=== PATIENT | male | born 1960 | race Caucasian/White ===

== ENCOUNTER 2024-09-19 08:57 | Outpatient (AMB) | payer MEDICARE, SELFPAY ==
--- NOTE | 2024-09-19 09:07 | A.SPINEOV_ITS ---
Intake Visit Reasons: severe foraminal stenosis Intake Note: Mr. Gonzales is here today c/o low back pain. MRI done @ [facility] (brought disc). [employer] Required: No Assessment & Plan Assessment & Plan (1) Cervical radiculopathy: Code(s): M54.12 - Radiculopathy, cervical region Category: Medical Plan Dear Randy, Thank you for referring Mr Gonzales to our office today. He is a very nice 64-year-old gentleman who presents to the office today for evaluation of a right upper extremity pain consistent with cervical radiculopathy that started about a month ago. He has no particular inciting event that started it, just came on after he felt something weird in his neck. That day he was okay but over the next day it started to radiate down into his subscapular area into his arm going into his hand and 4th and 5th digits. The pain was quite intense. As I understand it he called your office a number of times looking for pain medication it was trialed on gabapentin and ultimately some oxycodone. It does not seem to be helping much at all. He is very frustrated because he can not sleep and he is in about an 8/10 pain all day. He has not done any conservative treatment yet other than just taking the medications. He has also trialed Motrin and Tylenol. He underwent an MRI at [facility] showing degenerative disc disease with foraminal stenosis. PMH: He has a history of COPD, seems to be mild, he has an albuterol prescription that he really does not use. History of hypertension, diabetes. His last A1c was 9 but it was down from 14 where it was about 4 months ago. As he tells me, his diabetes diagnosis is fairly recent and has been more stable over the last month. He was started on Lantus by a specialist in addition to metformin and Jardiance. He has a recorder device on his arm and was able to show me his blood sugars over the last few months. He runs a little high in the evenings, but during the day seems to be in the mid to low 100s. Had a history of lung cancer in 2022 that was cured with surgical resection, he did not need chemotherapy or any radiation. He is followed by Dr. Castro with serial CT scans. Other than that he has had some gout but is generally been healthy. He did have a chemical stress test a few years ago to check on his heart and that was negative for ischemia and he had normal EF. Social hx: He quit smoking 2 years ago with his cancer diagnosis. Occasionally drinks, does not smoke marijuana use any recreational drugs Medications: Metformin, Jardiance, Lantus, allopurinol, lisinopril, atorvastatin, Tylenol, oxycodone, gabapentin Allergies: None Physical exam: Awake alert oriented no acute distress, strength is full, he has pain with movement of his head going down his right arm consistent with Spurling sign. He has absent reflexes at the right biceps and right triceps. No Ochoa's sign. Imaging review: Cervical MRI done at [facility] as well as cervical x-ray were reviewed. This shows degenerative disc disease at C5-6 and C6-7. His x-ray appears to show auto fusion of the anterior C5-6 level with bridging osteophytes. He has foraminal stenosis moderate at this level. At C6-7 he has severe disc collapse with some retrolisthesis of C6 on 7 with bilateral foraminal stenosis. There is some very mild foraminal stenosis at C7-T1 as well. No spinal cord compression Impression: 64-year-old male diabetic, presents for evaluation of right upper extremity radiculopathy going down into his hand and 4th and 5th digits. The pain started about a month ago when he was moving his head and felt an awkward sensation. Patient has not done any conservative treatment yet other than just trying to wait this out using medications as outlined above. I think the pain is coming from C6-7 I suspect. The dermatomal distribution on his hand is somewhat atypical but as we know patient can have some overlap. Typically this is something Dr. Gorman would treat with anterior cervical fusion, but the patient has only had pain for 1 month and his insurance company is not going to approve surgery until he is at least trialed some physical therapy. I explained this to him. He was somewhat frustrated with the but understands that is part of the medical system that we work in. He is going to continue on the gabapentin and the other [id number] medications. I told him to call me in a few weeks and if the therapy is just making things worse, we can submit for surgery. In the interim however I will review the imaging with Dr. Gorman. His A1c is a little bit elevated over the last 2 times he has had it checked, but it has come down significantly from 14 to 9 over the last few months. He has had Lantus added to his regimen recently as well by an middle school technology teacher. The computer tracker on his phone shows that his blood sugars have been a little elevated but not severely so over the last month. I hope this will keep him from surgery but if you believe it is elevating his risk please let us know. He is slightly higher for risk of infection with his A1c elevated. Thank you for allowing us to care for your patient. The total time spent with this visit with this patient was 45 minutes reviewing history, physical exam, cervical imaging review, and implementation of treatment plan or further diagnostic testing Nahid Gorman MD,PhD [facility] Orders: Orders PT Evaluation and Treatment Today M54.12 - Radiculopathy, cervical region Coding Level of Care Code New Pt Level 4 (55354) Diagnoses Cervical radiculopathy M54.12
--- OUTSIDE RECORDS SUMMARY | 2024-09-19 09:26 | XMS_ITS | Clinical Summary ---
Author Organization [address] [facility] Address [address] [facility] [place] [address] Phone Care Team Providers Care Bankruptcy Assistant Name Role Phone Cash Walters Primary Care Provider [phone] Allergies No known active allergies Medications atorvastatin (LIPITOR) 80 mg tablet Take 1 tablet (80 mg total) by mouth 1 (one) time each day. 4 Active FreeStyle Arabella 3 Sensor device USE TO CHECK BLOOD SUGAR, IN VITRO, DAILY DX: E11.9 90 DAYS 5 Active FreeStyle Arabella 3 [place] misc USE TO CHECK BLOOD SUGAR, IN VITRO, DAILY DX: E11.9 30 DAYS 5 Active blood sugar diagnostic (FreeStyle Lite Strips) test strip USE TO CHECK BLOOD SUGAR, IN VITRO, DAILY DX: E11.9 90 DAYS 5 Active FreeStyle Lancets 28 gauge lancets USE TO CHECK BLOOD SUGAR DAILY 5 Active empagliflozin (JARDIANCE) 25 mg tablet 5 Active metFORMIN (GLUCOPHAGE) 1,000 mg tablet Take 1 tablet (1,000 mg total) by mouth 2 (two) times a day with meals. 5 Active insulin glargine (Lantus Solostar U-100 Insulin) 100 unit/mL (3 mL) injection pen Use 6 units at bedtime, increase by 1 unit every 3 days with max of 10 units at bedtime, if fasting sugars is above 130 15 mL 2 5 Active pen needle, diabetic (BD Ultra-Fine France Pen Needle) 32 gauge x 5/32 needle Use daily with insulin 100 each 2 5 Active allopurinoL (ZYLOPRIM) 300 mg tablet Take 1 tablet (300 mg total) by mouth 1 (one) time each day. 5 Active lisinopriL (PRINIVIL,ZESTR IL) 30 mg tablet Take 1 tablet (30 mg total) by mouth 1 (one) time each day. for 90 days 5 Active albuterol HFA (PROAIR HFA ; PROVENTIL HFA ; VENTOLIN HFA) 90 mcg/actuation inhaler Inhale 2 puffs by mouth every 6 (six) hours if needed for wheezing or shortness of breath. 3 each 3 5 09/10/19 26 Active lisinopril (PRINIVIL,ZESTR IL) 40 mg tablet Take 30 mg by mouth 1 (one) time each day. 09/10/19 25 Discontinu ed(Therapy completed) metoprolol tartrate (LOPRESSOR) 25 mg tablet Take 1 tablet (25 mg total) by mouth 1 (one) time each day. 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 Gonzales is a 63 yr. male who is S/P right lower lobe wedge resection with completion lobectomy on September 01, 2022. 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 He was seen by Dr. Conner of medical oncology who did not recommend adjuvent chemotherapy. While he was in office today we did review his most recent chest CT surveillance scan which was performed on 03/28/2024 at [facility] and shows no new or worsening pulmonary nodules or mediastinal lymphadenopathy to suggest recurrence of disease. His next chest CT scan will be due in 6 months time which will be September 2024 and have a visit at the thoracic surgery department thereafter to discuss results. Pulmonary nodules 08/14/2022 Overview (01/29/2024): Last Assessment & Plan: 62-year-old male smoker who quit 17 days ago who presents after biopsy of right lower lobe nodule showing some atypical cells as well as a smaller nodule of mixed density in the right upper lobe. I do think that at least the lower lobe nodule is most likely a clinical stage I lung cancer and I explained this to him in detail. I discussed the results of his CAT scan and biopsy as described in the HPI. We also discussed the diagnosis, staging, and treatment of lung cancer which he and his seemed understand. His pulmonary function testing is excellent. I did discuss pulmonary nodules in general also with there are various possible etiologies including benign and malignant. Finally, we discussed options of continued observation versus second biopsy versus wedge resection possible lobectomy. After consideration of these options and their risks and benefits he wants to proceed with surgery. Given that there is a second nodule of mixed density in the right upper lobe with a surgical plan will be for navigational bronchoscopy with dye marking of right upper lobe nodule and da To right lower lobe wedge possible lobectomy in addition to right upper lobe wedge possible segmentectomy. We will have him see his primary care for a risk assessment and sure that the PET scan that has already been ordered happens within the next week or so. All questions were answered. Encounters Date Type Department Care Team Description 09/09/2024 8:30 AM EDT Office Visit Pulmonolgy - [place] [address] [facility] [address] [place] [phone] Angelica Nixon MD Chronic obstructive pulmonary disease, unspecified COPD type (CMS/HCC V24, CMS/HCC V28) (Primary Dx); Malignant neoplasm of lung, unspecified laterality, unspecified part of lung (CMS/HCC V24, CMS/HCC V28); Ex-smoker 09/02/2024 6:38 PM EDT - 09/02/2024 11:59 PM EDT Hospital Encounter [facility] MRI [address] [place] [id number] Radiculopathy, cervical region Discharge Disposition: Home or Self Care 09/01/2024 10:20 AM EDT Office Visit Endocrinology - [address] [phone] Jael Lopez PA Diabetes mellitus type 2 with complications ([facility] V24, [facility] V28) (Primary Dx); High triglycerides 08/26/2024 10:03 AM EDT - 08/26/2024 11:59 PM EDT Hospital Encounter [facility] Xray [address] [place] [phone] Radiculopathy, cervical region Discharge Disposition: Home or Self Care 08/23/2024 6:52 AM EDT - 08/23/2024 8:07 AM EDT Emergency [facility] Emergency [address] [place] [phone] Discharge Disposition: Left Against Medical Advice 07/11/2024 2:20 PM EDT Consult Endocrinology - [address] [phone] Jael Lopez PA Diabetes mellitus type 2 with complications ([facility] V24, [facility] V28) (Primary Dx); High triglycerides from Last 3 Months Surgical History Surgery Date Site/Laterality Comments OTHER SURGICAL HISTORY Left PROCEDURE: NH CORE NEEDLE BX LUNG/MEDIASTINUM PERQ W/IMG Medical History Medical History Date Comments COPD (chronic obstructive pu lmonary disease) ([facility] V24, [facility] V28) DX:COPD (chronic o bstructive pulmonary disease) ([facility]) Dyslipidemia DX:Dyslipidemia Gout DX:Gout Type 2 diabetes mellitus wit hout complications ([facility] V24, [facility] V28) DX:Type 2 lucia betes mellitus without complications ([facility]) HTN (hypertension) DX:HTN (hyper tension) Nicotine addiction DX:Nicotine a ddiction Social History Tobacco Use Types Packs/Day Years Used Date Smoking Tobacco: Former Cigarettes Q uit: 07/28/2022 Smokeless Tobacco: Never Tobacco Cessation:Counseling Given: Not Answered Alcohol Use Standard Drinks/Week Comments Yes 7 (1 standard drink = 0.6 oz pur e alcohol) Sex and Gender Information Value Date Recorded Sex Assigned at Male 06/10/2024 2:06 PM EST Legal Sex Male 7:25 AM EST Gender Identity Male 06/10/2024 2:06 PM EST Sexual Orientation Straight 06/10/2024 2: 06 PM EST Obstetrics History Last Filed Vital Signs Vital Sign Reading Time Taken Comments Blood Pressure 145/66 09/09/2024 8:55 AM EDT Pulse 97 09/09/2024 8:55 AM EDT Temperature 35.6 ??C (96 ??F) 09/09/2024 8:55 AM EDT Respiratory Rate 16 09/09/2024 8:55 AM EDT Oxygen Saturation 97% 09/09/2024 8:55 AM EDT Inhaled Oxygen Concentration - - Weight 88.9 kg (195 lb 14.4 oz) 09/09/2024 8:55 AM EDT Height 175.3 cm (5' 9 ) 09/09/2024 8:55 AM EDT Body Mass Index 28.93 09/09/2024 8:55 AM EDT Plan of Treatment Upcoming Encounters Date Type Department Care Team (Late st Contact Info) Description 10/17/2024 2:00 PM EDT Appointment [facility] CT Scan [address] [place] [phone] 10/26/2024 10:00 AM EDT Office Visit Thoracic Surgery - [place] [address] [phone] Irving Chery PA [address] [address] 12/02/2024 10:45 AM EDT Office Visit Endocrinology - [address] [phone] Katie Ruby PA [address] [place] [address] 09/12/2025 10:00 AM EDT Office Visit Pulmonolgy - [place] [address] [phone] Angelica Nixon MD [address] [address] Health Maintenance Due Date Last Done Comments Diabetes: Annual Foot Exam 1969 Diabetes: Annual Retina Eye Exam 1969 DTaP,Tdap,and Td Vaccines (1 - Tdap) 1978 Pneumococcal Vaccine: 50+ Years (1 of 2 - PCV) 1978 Pneumococcal Vaccine: Pediatrics (0 to 5 Years) and At-Risk Patients (6 to 64 Years) (1 of 2 - PCV) 1978 Zoster Vaccines (1 of 2) 1978 RSV Immunization Adult Patients (1 - Risk 60-74 years 1-dose series) 2019 Abdominal Aortic Aneurysm (AAA) Screen 03/23/2022 Colorectal Cancer Screening: Colonoscopy 03/23/2022 Depression Screening 03/23/2022 Hepatitis C Screening 03/23/2022 Medicare Annual Wellness Visit 03/23/2022 Social Influencers of Health Screening 03/23/2022 COVID-19 Vaccine ( season) 2023 04/08/2021, 08/25/2020, 08/04/2020 Falls Risk Assessment 01/04/2024 Diabetes: Annual Urine Albumin-Creatinine Ratio (uACR) 03/02/2024 Influenza Vaccine (Season Ended) 2024 Diabetes: Blood Sugar Control Test (HGBA1C) 02/01/2025 08/02/2024, 06/09/2024, 03/02/2024 Diabetes: Annual GFR (Glomerular Filtration Rate) 06/10/2025 06/10/2024, 06/09/2024 Cholesterol Screening (Lipid Panel) 08/02/2029 08/02/2024, 08/02/2024, 06/09/2024, Additional history exists HIB Vaccines Aged Out No longer eligi ble based on patient's age to complete this topic HPV Vaccines Aged Out No longer eligi ble based on patient's age to complete this topic Hepatitis A Vaccines Aged Out No long er eligible based on patient's age to complete this topic Hepatitis B Vaccines Aged Out No long er eligible based on patient's age to complete this topic IPV Vaccines Aged Out No longer eligi ble based on patient's age to complete this topic MMR Vaccines Aged Out No longer eligi ble based on patient's age to complete this topic Meningococcal ACWY Vaccine Aged Out N o longer eligible based on patient's age to complete this topic Meningococcal B Vaccine Aged Out No l onger eligible based on patient's age to complete this topic RSV Immunization Patients Under 20 months Aged Out No longer eligible based on patient's age to complete this topic Varicella Vaccines Aged Out No longer eligible based on patient's age to complete this topic Procedures Procedure Name Priority Date/Time Associated Diagnosis Comments MR CERVICAL SPINE WO CONTRAST Routine 09/02/2024 7:33 PM EDT Radiculopathy, cervical region XR CERVICAL SPINE 4-5 VIEWS Routine 08/26/2024 10:24 AM EDT Radiculopathy, cervical region XR SHOULDER 2+ VIEWS RIGHT STAT 08/23/2024 7:13 AM EDT LDL CHOLESTEROL, DIRECT Routine 08/02/2024 10:05 AM EDT Laboratory tests ordered as part of a complete physical exam (CPE) HLD (hyperlipidemia) DM (diabetes mellitus) (CMS/[facility] V24, CMS/[facility] V28) Blood in stool Gout HEMOGLOBIN A1C Routine 08/02/2024 10:05 AM EDT Laboratory tests ordered as part of a complete physical exam (CPE) HLD (hyperlipidemia) DM (diabetes mellitus) (CMS/HCC V24, CMS/[facility] V28) Blood in stool Gout FERRITIN Routine 08/02/2024 10:05 AM EDT Laboratory tests ordered as part of a complete physical exam (CPE) HLD (hyperlipidemia) DM (diabetes mellitus) (CMS/HCC V24, CMS/[facility] V28) Blood in stool Gout IRON Routine 08/02/2024 10:05 AM EDT Laboratory tests ordered as part of a complete physical exam (CPE) HLD (hyperlipidemia) DM (diabetes mellitus) (CMS/HCC V24, CMS/[facility] V28) Blood in stool Gout CREATINE KINASE Routine 08/02/2024 10:05 AM EDT Laboratory tests ordered as part of a complete physical exam (CPE) HLD (hyperlipidemia) DM (diabetes mellitus) (CMS/HCC V24, CMS/[facility] V28) Blood in stool Gout LIPID PANEL WITH REFLEX TO DIRECT LDL Routine 08/02/2024 10:05 AM EDT Laboratory tests ordered as part of a complete physical exam (CPE) HLD (hyperlipidemia) DM (diabetes mellitus) (CMS/HCC V24, [facility]/HCC V28) Blood in stool Gout COMPREHENSIVE METABOLIC PANEL STAT 06/10/2024 12:55 PM EST from Last 3 Months or Most Recently Relevant to Health Maintenance Results * MR Cervical Spine wo Contrast (09/02/2024 7:33 PM EDT) Anatomical Region Laterality Modality C-spine, Spine Magnetic Resonan ce 09/05/2024 10:5 3 AM EDT Impressions 09/05/2024 11:27 AM EDT Multilevel degenerative changes most pronounced at C5-6 and C6-7 where there is moderate spinal canal stenosis and severe foraminal stenosis bilaterally. ??No cord signal abnormality. -------- FINAL REPORT -------- Dictated By: SATISH HAM Dictated Date: 09/05/2024 10:53 ET Assigned Physician: SATISH HAM Reviewed and Electronically Signed By: SATISH HAM Signed Date: 09/05/2024 11:27 ET Workstation ID: [id number] Transcribed By: Self Edit Transcribed Date: 09/05/2024 11:04 ET Narrative 09/05/2024 11:27 AM EDT PROCEDURE: Cervical spine MRI INDICATION: Pain TECHNIQUE: Multiplanar, multisequence MRI of the Cervical spine Without contrast. COMPARISON: ??Radiographs 08/26/2024. FINDINGS: Mild anterolisthesis at C7-T1 related to degenerative facet arthropathy. No fracture or suspicious marrow replacing lesion. Degenerative loss of normal disc height and signal at C5-6 and C6-7 with associated endplate spurring. Cervical facet arthritis, most pronounced on the left at C7-T1 and C3-4 as well as on the right at C2-3 and C4-5. Cervical cord is normal in signal and morphology. ??No epidural collection or mass is seen within the spinal canal. Paraspinal muscles are within normal limits. Findings by level: C2-C3: Right greater than left facet arthropathy and uncovertebral spurring resulting in mild left and moderate right foraminal stenosis. ??No spinal canal stenosis. C3-C4: Left greater than right facet arthropathy and uncovertebral spurring resulting in severe left and moderate right frontal stenosis. ??No spinal canal stenosis. C4-C5: Bilateral facet arthropathy and uncovertebral spurring resulting in severe foraminal stenosis bilaterally. ??No spinal canal stenosis. C5-C6: Posterior disc osteophyte complex with thickening of the posterior ligamentous structures resulting in moderate spinal canal stenosis. ??Left greater than right facet arthropathy and uncovertebral spurring resulting in severe foraminal stenosis bilaterally, more pronounced on the left. C6-C7: Posterior disc osteophyte complex and thickening of the posterior ligamentous structures results in moderate spinal canal stenosis. ??Bilateral uncovertebral spurring with severe foraminal stenosis bilaterally. C7-T1: Posterior disc osteophyte complex with no spinal canal stenosis. ??Bilateral uncovertebral spurring and facet arthropathy resulting in moderate foraminal stenosis bilaterally. Procedure Note Satish Ham MD - 09/05/2024 PROCEDURE: Cervical spine MRI INDICATION: Pain TECHNIQUE: Multiplanar, multisequence MRI of the Cervical spine Withoutcontrast. COMPARISON: Radiographs 08/26/2024. FINDINGS: Mild anterolisthesis at C7-T1 related to degenerative facet arthropathy. No fracture or suspicious marrow replacing lesion. Degenerative loss of normal disc height and signal at C5-6 and C6-7 withassociated endplate spurring. Cervical facet arthritis, most pronounced on the left at C7-T1 and C3-4 aswell as on the right at C2-3 and C4-5. Cervical cord is normal in signal and morphology. No epidural collectionor mass is seen within the spinal canal. Paraspinal muscles are within normal limits. Findings by level: C2-C3: Right greater than left facet arthropathy and uncovertebralspurring resulting in mild left and moderate right foraminal stenosis. Nospinal canal stenosis. C3-C4: Left greater than right facet arthropathy and uncovertebralspurring resulting in severe left and moderate right frontal stenosis. Nospinal canal stenosis. C4-C5: Bilateral facet arthropathy and uncovertebral spurring resulting insevere foraminal stenosis bilaterally. No spinal canal stenosis. C5-C6: Posterior disc osteophyte complex with thickening of the posteriorligamentous structures resulting in moderate spinal canal stenosis. Leftgreater than right facet arthropathy and uncovertebral spurring resultingin severe foraminal stenosis bilaterally, more pronounced on the left. C6-C7: Posterior disc osteophyte complex and thickening of the posteriorligamentous structures results in moderate spinal canal stenosis.Bilateral uncovertebral spurring with severe foraminal stenosisbilaterally. C7-T1: Posterior disc osteophyte complex with no spinal canal stenosis.Bilateral uncovertebral spurring and facet arthropathy resulting inmoderate foraminal stenosis bilaterally. IMPRESSION: Multilevel degenerative changes most pronounced at C5-6 and C6-7 wherethere is moderate spinal canal stenosis and severe foraminal stenosisbilaterally. No cord signal abnormality. -------- FINAL REPORT -------- Dictated By: SATISH HAM Dictated Date: 09/05/2024 10:53 ET Assigned Physician: SATISH HAM Reviewed and Electronically Signed By: SATISH HAM Signed Date: 09/05/2024 11:27 ET Workstation ID: [id number] Transcribed By: Self Edit Transcribed Date: 09/05/2024 11:04 ET Cash Walters DO IMG MRI PROCEDURES Final Resu lt * XR Cervical Spine 4-5 Views (08/26/2024 10:24 AM EDT) Anatomical Region Laterality Modality Spine, C-spine Radiographic [place] ging 08/26/2024 12:1 2 PM EDT Impressions 08/26/2024 12:17 PM EDT No acute fracture or subluxation. Extensive degenerative disc and degenerative joint disease greatest at C5/C6. There is bilateral bony foraminal narrowing difficult to quantify on the left. -------- FINAL REPORT -------- Dictated By: Demarcus Jorgensen Dictated Date: 08/26/2024 12:12 ET Assigned Physician: Demarcus Jorgensen Reviewed and Electronically Signed By: Demarcus Jorgensen Signed Date: 08/26/2024 12:17 ET Workstation ID: [id number] Transcribed By: Self Edit Transcribed Date: 08/26/2024 12:12 ET Narrative 08/26/2024 12:17 PM EDT EXAMINATION: CERVICAL SPINE CLINICAL INFORMATION: Right-sided neck pain. Symptoms for one week. No trauma COMPARISON: None. TECHNIQUE: 5 views of the cervical spine FINDINGS: There is some calcification in the region of the carotid bulb on each side. There is no prevertebral soft tissue swelling. There is mild reversal of the cervical lordosis. No acute fracture or suspicious focal lesion. No loss of volume. There is moderate to marked narrowing of the C5/C6 disc. There is extensive anterior osteophyte greatest at C5/C6 but also present at C4/C5 and C6/C7. There is mild narrowing of the C6/C7 disc. There is sclerosis and narrowing of the facets at C3/C4 and C4/C5. There is spurring associated with the uncovertebral joints and facets throughout the mid and lower cervical spine. There is at least moderate bony foraminal narrowing on the right at C4/C5 and C6/C7 with mild bony foraminal narrowing in the right at C5/C6. There is at least some bony foraminal narrowing on the left at C6/C7 and C5/C6 although the foramina are not optimally evaluated. No suspicious abnormality in the visualized apex of the chest Procedure Note Demarcus Jorgensen MD - 08/26/2024 EXAMINATION: CERVICAL SPINE CLINICAL INFORMATION: Right-sided neck pain. Symptoms for one week. No trauma COMPARISON: None. TECHNIQUE: 5 views of the cervical spine FINDINGS: There is some calcification in the region of the carotid bulb on eachside. There is no prevertebral soft tissue swelling. There is mild reversal of the cervical lordosis. No acute fracture or suspicious focal lesion. No loss of volume. There is moderate to marked narrowing of the C5/C6 disc. There isextensive anterior osteophyte greatest at C5/C6 but also present at C4/C5and C6/C7. There is mild narrowing of the C6/C7 disc. There is sclerosisand narrowing of the facets at C3/C4 and C4/C5. There is spurringassociated with the uncovertebral joints and facets throughout the mid andlower cervical spine. There is at least moderate bony foraminal narrowing on the right at C4/C5and C6/C7 with mild bony foraminal narrowing in the right at C5/C6. Thereis at least some bony foraminal narrowing on the left at C6/C7 and C5/A5jdguiqof the foramina are not optimally evaluated. No suspicious abnormality in the visualized apex of the chest IMPRESSION: No acute fracture or subluxation. Extensive degenerative disc and degenerative joint disease greatest atC5/C6. There is bilateral bony foraminal narrowing difficult to quantifyon the left. -------- FINAL REPORT -------- Dictated By: Demarcus Jorgensen Dictated Date: 08/26/2024 12:12 ET Assigned Physician: Demarcus Jorgensen Reviewed and Electronically Signed By: Demarcus Jorgensen Signed Date: 08/26/2024 12:17 ET Workstation ID: [id number] Transcribed By: Self Edit Transcribed Date: 08/26/2024 12:12 ET us Cash Walters DO IMG XR PROCEDURES Final Resul t * XR Shoulder 2+ Views Right (08/23/2024 7:13 AM EDT) Anatomical Region Laterality Modality Upper Extremities, Shoulder Right Radi ographic Imaging 08/23/2024 8:21 AM EDT Impressions 08/23/2024 8:23 AM EDT Impression: No significant abnormality of the right scapula identified. [facility] EDU ([id number]) -------- FINAL REPORT -------- Dictated By: Shu Guardado Dictated Date: 08/23/2024 08:21 ET Assigned Physician: Shu Guardado Reviewed and Electronically Signed By: Shu Guardado Signed Date: 08/23/2024 08:23 ET Workstation ID: [id number] Transcribed By: Self Edit Transcribed Date: 08/23/2024 08:21 ET Narrative 08/23/2024 8:23 AM EDT History: Pain along right scapular border. No known trauma. Findings: AP and lateral views of the right scapula. The regional skeleton is intact. No osseous destructive lesion is identified. The overlying soft tissues are unremarkable. Old, healed fractures of the posterolateral aspects of the right sixth through eighth ribs are noted. Surgical chain suture is seen within the right lung, consistent with previous partial lung resection. Procedure Note Shu Guardado MD - 08/23/2024 History: Pain along right scapular border. No known trauma. Findings: AP and lateral views of the right scapula. The regional skeleton isintact. No osseous destructive lesion is identified. The overlying softtissues are unremarkable. Old, healed fractures of the posterolateral aspects of the right sixththrough eighth ribs are noted. Surgical chain suture is seen within theright lung, consistent with previous partial lung resection. IMPRESSION: Impression: No significant abnormality of the right scapula identified. [facility] PA ([id number]) -------- FINAL REPORT -------- Dictated By: Shu Guardado Dictated Date: 08/23/2024 08:21 ET Assigned Physician: Shu Guardado Reviewed and Electronically Signed By: Shu Guardado Signed Date: 08/23/2024 08:23 ET Workstation ID: [id number] Transcribed By: Self Edit Transcribed Date: 08/23/2024 08:21 ET [facility] Venus Bearden MD IMG XR PROCEDURES Final Result * (ABNORMAL) Lipid panel with reflex to direct LDL (08/02/2024 10:05 AM EDT) Cholesterol 316(H) 0 - 200 mg/dL LAB CHEMISTRY METHOD 08/02/2024 12:07 PM EDT [facility] Triglycerides 918(H) 0 - 150 mg/dL LAB CHEMISTRY METHOD 08/02/2024 12:07 PM EDT [facility] HDL 47 >=40 mg/dL LAB CHEMISTRY METHOD 08/02/2024 12:07 PM EDT [facility] LDL Calculated LAB CHEMISTRY METHOD 08/02/2024 12:07 PM T [facility] Comment: Unable to calculate when triglycerides >400 mg/dL. Triglyceride value is >= 500. ??Calculated LDL is not meaningful. ??Direct LDL has been added. VLDL Cholesterol Hussein LAB CHEMISTRY METHOD 08/02/2024 12:07 PM EDT [facility] Comment:Unable to calculate when triglycerides >400 mg/dL. Non HDL Chol. (LDL+VLDL) LAB CHEMISTRY METHOD 08/02/2024 12:07 PM EDT [facility] Comment:Unable to calculate when triglycerides >400 mg/dL. Chol/HDL Ratio 6.7(H) 0.0 - 4.4 LAB CHEMISTRY METHOD 08/02/2024 12:07 PM EDT [facility] Blood Venous blood specimen / Unknown Venipuncture / Unknown 08/02/2024 10:05 AM EDT 08/02/2024 10:05 AM EDT [facility] LAB BLOOD ORDERABLES Final Resul t Performing Organization Address [facility]/ZIP Co de Phone Number [facility] [address] [place] [address], [place] [phone] * (ABNORMAL) LDL cholesterol, direct (08/02/2024 10:05 AM EDT) LDL Direct 159(H) <=100 mg/dL LAB CHEMISTRY METHOD 08/02/2024 12:37 PM EDT [facility] Comment:Results verified by repeat testing Blood Venous blood specimen / Unknown Venipuncture / Unknown 08/02/2024 10:05 AM EDT 08/02/2024 10:05 AM EDT [facility] LAB BLOOD ORDERABLES Final Resul t Performing Organization Address City/[facility]/ZIP Co de Phone Number [facility] [address] [place] [address], [place] [phone] * Iron (08/02/2024 10:05 AM EDT) Iron 68 50 - 160 mcg/dL LAB CHEMISTRY METHOD 08/02/2024 12:07 PM EDT [facility] Blood Venous blood specimen / Unknown Venipuncture / Unknown 08/02/2024 10:05 AM EDT 08/02/2024 10:05 AM EDT [id number] LAB BLOOD ORDERABLES Final Resul t Performing Organization Address City/[facility]/ZIP Co de Phone Number [facility] [address] [place] [address], [place] [phone] * (ABNORMAL) Hemoglobin A1c (08/02/2024 10:05 AM EDT) Hemoglobin A1C 9.3(H) <6.5 % LAB CHEMISTRY METHOD 08/02/2024 2:16 PM EDT [facility] Mean Bld Glu Estim. 220 mg/dL LAB CHEMISTRY METHOD 08/02/2024 2:16 PM EDT [facility] Blood Venous blood specimen / Unknown Venipuncture / Unknown 08/02/2024 10:05 AM EDT 08/02/2024 10:05 AM EDT [id number] LAB BLOOD ORDERABLES Final Resul t Performing Organization Address [facility]/ZIP Co de Phone Number [facility] [address] [place] [address], [place] [phone] * Ferritin (08/02/2024 10:05 AM EDT) Ferritin 262 26 - 388 ng/mL LAB CHEMISTRY METHOD 08/02/2024 12:07 PM EDT [facility] Blood Venous blood specimen / Unknown Venipuncture / Unknown 08/02/2024 10:05 AM EDT 08/02/2024 10:05 AM EDT [id number] LAB BLOOD ORDERABLES Final Resul t Performing Organization Address City/[facility]/ZIP Co de Phone Number [facility] [address] [place] [address], [place] [phone] * Creatine kinase (08/02/2024 10:05 AM EDT) Pathologist [facility] Total CK 78 22 - 269 unit/L LAB CHEMISTRY METHOD 08/02/2024 11:56 AM EDT [facility] Blood Venous blood specimen / Unknown Venipuncture / Unknown 08/02/2024 10:05 AM EDT 08/02/2024 10:05 AM EDT us [facility] LAB BLOOD ORDERABLES Final Resul t [facility] [address] [place] [address], [place] [phone] * (ABNORMAL) Comprehensive metabolic panel (06/10/2024 12:55 PM EST) [facility] Sodium 129(L) 133 - 145 mmol/L LAB CHEMISTRY METHOD 06/10/2024 2:27 PM [facility] Potassium 4.8 3.5 - 5.5 mmol/L LAB CHEMISTRY METHOD 06/10/2024 2:27 PM [facility] Chloride 93(L) 96 - 110 mmol/L LAB CHEMISTRY METHOD 06/10/2024 2:27 PM [facility] CO2 22 21 - 32 mmol/L LAB CHEMISTRY METHOD 06/10/2024 2:27 PM [facility] Anion Gap 14(H) 3 - 11 LAB CHEMISTRY METHOD 06/10/2024 2:27 PM [facility] Glucose 432(HH) 70 - 100 mg/dL LAB CHEMISTRY METHOD 06/10/2024 2:27 PM [facility] BUN 30(H) 5 - 25 mg/dL LAB CHEMISTRY METHOD 06/10/2024 2:27 PM [facility] Creatinine 1.40(H) 0.70 - 1.30 mg/dL LAB CHEMISTRY METHOD 06/10/2024 2:27 PM [facility] eGFR 56(L) >=60 mL/min/1. 73m2 LAB CHEMISTRY METHOD 06/10/2024 2:27 PM [facility] Comment:Calculation based on the??Chronic Kidney Disease Epidemiology Collaboration (CKD-EPI) equation refit??without adjustment for race. BUN/Creatinine Ratio 21.4 LAB CHEMISTRY METHOD 06/10/2024 2:27 PM [facility] Calcium 9.8 8.5 - 10.5 mg/dL LAB CHEMISTRY METHOD 06/10/2024 2:27 PM [facility] AST (SGOT) 34 10 - 42 unit/L LAB CHEMISTRY METHOD 06/10/2024 2:27 PM [facility] ALT (SGPT) 48 10 - 60 unit/L LAB CHEMISTRY METHOD 06/10/2024 2:27 PM [facility] Alkaline Phosphatase 154(H) 42 - 121 unit/L LAB CHEMISTRY METHOD 06/10/2024 2:27 PM [facility] Total Protein 7.7 6.0 - 8.0 g/dL LAB CHEMISTRY METHOD 06/10/2024 2:27 PM [facility] Albumin 4.0 3.2 - 5.0 g/dL LAB CHEMISTRY METHOD 06/10/2024 2:27 PM [facility] Total Bilirubin 0.5 0.0 - 1.4 mg/dL LAB CHEMISTRY METHOD 06/10/2024 2:27 PM [facility] Blood Venous blood specimen / Unknown Venipuncture / Unknown 06/10/2024 12:55 PM EST 06/10/2024 1:30 PM EST us Denilson Leon MD LAB BLOOD ORDERABLES Alice membreno Result [facility] [address] [place] [address], from Last 3 Months or Most Recently Relevant to Health Maintenance Insurance [employer] Care Teams Bankruptcy Assistant Relationship Specialty Start Date End Date Cash Walters DO [address] [place] [address] [place] [phone] PCP - General 07/18/22
== END 2024-09-19 09:46 | disposition home or self-care (01) ==
LOC: HO.HNS 08:58
PROVIDERS: PCP Internal Medicine; Referring Provider Internal Medicine; Visit Provider Physician Assistant
DX: M54.12 Radiculopathy, cervical region (principal)
CPT/HCPCS: 99204

== ENCOUNTER → 2024-09-19 08:57 | Outpatient (BNVA) | payer MEDICARE, SELFPAY | PROVIDERS: PCP Internal Medicine; Referring Provider Internal Medicine; Visit Provider Physician Assistant | DX: M54.12 Radiculopathy, cervical region (principal) | CPT/HCPCS: 99202 ==

== ENCOUNTER 2024-10-31 11:36 | Outpatient (AMB) | payer MEDICARE, SELFPAY ==
--- NOTE | 2024-10-31 11:54 | HO.SPINEOV ---
Intake Visit Reasons: F/u after PT Intake Note: Mr. Gonzales is here to F/u after PT. Hotel Assistant Manager Required: No Allergies No Known Allergies Allergy (Verified 10/31/24 11:55) Assessment & Plan Assessment & Plan (1) Cervical radiculopathy: Code(s): M54.12 - Radiculopathy, cervical region Category: Medical (2) Dupuytren contracture: Code(s): M72.0 - Palmar fascial fibromatosis [Dupuytren] Category: Medical Plan Mr Gonzales came back today in the office for follow-up. The pain down his right arm went away with physical therapy and tincture of time. He still has some tingling going from his elbow into his 4th and 5th digits but it sounds more to me like that is ulnar neuropathy. He also has a flexed Dupuytren's contracture on his right hand today. He states that that is getting worse. 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 From the standpoint of his cervical spine, he does not need any surgery because he is feeling better. If the pain down the right arm comes back however we will need a noncontrast CT to evaluate for auto fusion at C5-6, but for now we will put that on the back burner. I told him that I could refer him to 1 of my colleagues for his hand issues and his cubital tunnel syndrome as well. He will let me know if he wants that referral. Total amount of time spent in this visit was 20 minutes in discussion of symptoms, cervical MRI imaging results and subsequent plan of care Nahid oGrman MD,PhD [facility] Coding Level of Care Code Est Pt Level 3 (47495) Diagnoses Cervical radiculopathy M54.12 Dupuytren contracture M72.0
--- OUTSIDE RECORDS SUMMARY | 2024-10-31 12:45 | XMS_ITS | Clinical Summary ---
Author Organization [address] [facility] Address [address] [facility] [place] [address] Phone Care Team Providers Care Aadc Plans Staff Officer Name Role Phone Cris Turner MD Primary Care Provider [phone] Allergies No known active allergies Medications atorvastatin (LIPITOR) 80 mg tablet Take 1 tablet (80 mg total) by mouth 1 (one) time each day. 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 Butts is a 63 yr. male who is [...] scan which was performed on 03/28/2024 at [facility] and shows no new or worsening pulmonary [...] Encounters Date Type Department Care Team Description 10/26/2024 11:15 AM EDT Office Visit Thoracic Surgery - [place] [address] [facility] [address] [place] [phone] Irving Chery PA 10/17/2024 1:45 PM EDT - 10/17/2024 11:59 PM EDT Hospital Encounter [facility] CT Scan [address] [place] [phone] History of lung cancer Discharge Disposition: Home or Self Care 10/07/2024 Telephone Thoracic Surgery - [place] [address] [facility] [address] [place] [address] Joyce Boles [place] 09/09/2024 8:30 AM EDT Office Visit Pulmonolgy - [place] [address] [facility] [address] [place] [phone] Angelica Nixon MD Chronic obstructive pulmonary disease, unspecified COPD type (CMS/HCC V24, CMS/HCC V28) (Primary Dx); Malignant neoplasm of lung, unspecified laterality, unspecified part of lung (CMS/HCC V24, CMS/HCC V28); Ex-smoker 09/02/2024 6:38 PM EDT - 09/02/2024 11:59 PM EDT Hospital Encounter [facility] MRI [address] [place] [address] Radiculopathy, cervical region Discharge Disposition: Home or Self Care 09/01/2024 10:20 AM EDT Office Visit Endocrinology - [address] [phone] Jael Lopez PA Diabetes mellitus type 2 with complications ([facility] [place]24, [facility] V28) (Primary Dx); High triglycerides 08/26/2024 10:03 AM EDT - 08/26/2024 11:59 PM EDT Hospital Encounter [facility] Xray [address] [place] [address] Radiculopathy, cervical region Discharge Disposition: Home or Self Care 08/23/2024 6:52 AM EDT - 08/23/2024 8:07 AM EDT Emergency [facility] Emergency [address] [place] [phone] Discharge Disposition: Left Against Medical Advice from Last 3 Months Surgical History Surgery Date Site/Laterality Comments OTHER SURGICAL HISTORY Left PROCEDURE: [place] CORE NEEDLE BX LUNG/MEDIASTINUM PERQ W/IMG Medical History Medical History Date Comments COPD (chronic obstructive pu lmonary disease) ([facility] V24, [facility] V28) DX:COPD (chronic o bstructive pulmonary disease) ([facility]) Dyslipidemia DX:Dyslipidemia Gout DX:Gout Type 2 diabetes mellitus wit hout complications ([facility] V24, [facility] V28) DX:Type 2 lucia betes mellitus without complications ([facility]) HTN (hypertension) DX:HTN (hyper tension) Nicotine addiction [...] Sign Reading Time Taken Comments Blood Pressure 141/71 10/26/2024 11:08 AM EDT Pulse 100 10/26/2024 11:08 AM EDT Temperature 36.5 C (97.7 F) 10/26/2024 11:08 AM EDT Respiratory Rate 16 09/09/2024 8:55 AM EDT Oxygen Saturation 96% 10/26/2024 11:08 AM EDT Inhaled Oxygen Concentration - - Weight 90.9 kg (200 lb 4.8 oz) 10/26/2024 11:08 AM EDT Height 175.3 cm (5' 9 ) 10/26/2024 11:08 AM EDT Body Mass Index 29.58 10/26/2024 11:08 AM EDT Plan of Treatment Upcoming Encounters Date Type Department Care Team (Late st Contact Info) Description 12/02/2024 10:45 AM EDT Office Visit [address] [phone] Katie Ruby PA [address] [place] [address] 05/26/2025 11:00 AM EST Office Visit Adult Medicine [facility] [address] [place] [address] Cris Turner MD [address] [place] [address] 09/12/2025 10:00 AM EDT Office Visit Pulmonolgy [facility] [address] [phone] Angelica Nixon MD [address] [address] Health Maintenance Due Date Last Done Comments Diabetes: Annual Foot Exam 1969 Diabetes: Annual Retina Eye Exam 1969 DTaP,Tdap,and Td Vaccines (1 - Tdap) 1978 Pneumococcal Vaccine: 50+ Years (1 of 2 - PCV) 1978 Zoster [...] Urine Albumin-Creatinine Ratio (uACR) 03/02/2024 Influenza Vaccine (#1) 2024 Diabetes: Blood Sugar Control Test (HGBA1C) [...] Procedure Name Priority Date/Time Associated Diagnosis Comments CT CHEST WO CONTRAST Routine 10/17/2024 2:11 PM EDT History of lung cancer MR CERVICAL SPINE WO CONTRAST Routine 09/02/2024 7:33 PM EDT Radiculopathy, cervical region XR CERVICAL SPINE 4-5 VIEWS Routine 08/26/2024 10:24 AM EDT Radiculopathy, cervical region XR SHOULDER 2+ VIEWS RIGHT STAT 08/23/2024 7:13 AM EDT LDL CHOLESTEROL, DIRECT Routine 08/02/2024 10:05 AM EDT Laboratory tests ordered as part of a complete physical exam (CPE) HLD (hyperlipidemia) DM (diabetes mellitus) (CMS/HCC V24, CMS/HCC V28) Blood in stool Gout HEMOGLOBIN A1C Routine 08/02/2024 10:05 AM EDT Laboratory tests ordered as part of a complete physical exam (CPE) HLD (hyperlipidemia) DM (diabetes mellitus) (CMS/HCC V24, CMS/HCC V28) Blood in stool Gout FERRITIN Routine 08/02/2024 10:05 AM EDT Laboratory tests ordered as part of a complete physical exam (CPE) HLD (hyperlipidemia) DM (diabetes mellitus) (CMS/HCC V24, CMS/HCC V28) Blood in stool Gout IRON Routine 08/02/2024 10:05 AM EDT Laboratory tests ordered as part of a complete physical exam (CPE) HLD (hyperlipidemia) DM (diabetes mellitus) (CMS/HCC V24, CMS/HCC V28) Blood in stool Gout CREATINE KINASE Routine 08/02/2024 10:05 AM EDT Laboratory tests ordered as part of a complete physical exam (CPE) HLD (hyperlipidemia) DM (diabetes mellitus) (CMS/HCC V24, CMS/HCC V28) Blood in stool Gout LIPID PANEL WITH REFLEX TO DIRECT LDL Routine 08/02/2024 10:05 AM EDT Laboratory tests ordered as part of a complete physical exam (CPE) HLD (hyperlipidemia) DM (diabetes mellitus) ([facility] V24, [facility] V28) Blood in stool Gout COMPREHENSIVE METABOLIC PANEL STAT 06/10/2024 12:55 PM EST from Last 3 Months or Most Recently Relevant to Health Maintenance Results * CT Chest wo Contrast (10/17/2024 2:11 PM EDT) Anatomical Region Laterality Modality Body Computed Tomogra phy 10/18/2024 8:33 AM EDT Impressions 10/18/2024 8:44 AM EDT Prior right lower lobectomy. No new suspicious mass or nodule. No suspicious interval change -------- FINAL REPORT -------- Dictated By: Demarcus Jorgensen Dictated Date: 10/18/2024 08:33 ET Assigned Physician: Demarcus Jorgensen Reviewed and Electronically Signed By: Demarcus Jorgensen Signed Date: 10/18/2024 08:44 ET Workstation ID: [id number] Transcribed By: Self Edit Transcribed Date: 10/18/2024 08:33 ET Narrative 10/18/2024 8:44 AM EDT EXAMINATION: CT CHEST WITHOUT CONTRAST CLINICAL INFORMATION: Non-small cell lung cancer, nonmetastatic. Assess treatment response COMPARISON: Portions of previous 03/28/24 TECHNIQUE: Multidetector CT. Examination of the chest. Examination of the chest without IV contrast. Reformatting in the coronal and sagittal planes. DLP: 821 mGy-cm Dose optimization was performed including the use of low-dose iterative reconstruction technique with automatic exposure control based on patient size. Type of contrast: None Volume of IV contrast: None Volume of contrast discarded: 0 mL FINDINGS: LUNG: No suspicious abnormality of the trachea or mainstem bronchi. No suspicious findings in the region of prior right lower lobectomy. There is no new suspicious mass or nodule. No honeycomb formation or evidence of acute pneumonia. MEDIASTINUM: There are no enlarged mediastinal or hilar lymph nodes. No suspicious abnormality of the esophagus CARDIAC: The heart is not enlarged. No pericardial fluid or thickening CORONARY CALCIFICATION: There are marked coronary calcifications. VASCULAR: There is no thoracic aortic aneurysm. The main pulmonary artery is normal caliber. Marked arterial calcifications. PLEURA: There is no pleural fluid or pneumothorax AXILLA/CHEST WALL: There are no enlarged axillary lymph nodes. No chest wall mass demonstrated VISUALIZED UPPER ABDOMEN: No suspicious abnormality on limited assessment of the visualized upper abdomen MUSCULOSKELETAL: No suspicious focal bony lesion. Procedure Note Demarcus Jorgensen MD - 10/18/2024 EXAMINATION: CT CHEST WITHOUT CONTRAST CLINICAL INFORMATION: Non-small cell lung cancer, nonmetastatic. Assess treatment response COMPARISON: Portions of previous 03/28/24 TECHNIQUE: Multidetector CT. Examination of the chest. Examination of the chest without IV contrast. Reformatting in the coronal and sagittal planes. DLP: 821 mGy-cm Dose optimization was performed including the use of low-dose iterativereconstruction technique with automatic exposure control based on patientsize. Type of contrast: None Volume of IV contrast: None Volume of contrast discarded: 0 mL FINDINGS: LUNG: No suspicious abnormality of the trachea or mainstem bronchi. Nosuspicious findings in the region of prior right lower lobectomy. There is no new suspicious mass or nodule. No honeycomb formation or evidence of acute pneumonia. MEDIASTINUM: There are no enlarged mediastinal or hilar lymph nodes. Nosuspicious abnormality of the esophagus CARDIAC: The heart is not enlarged. No pericardial fluid or thickening CORONARY CALCIFICATION: There are marked coronary calcifications. VASCULAR: There is no thoracic aortic aneurysm. The main pulmonary arteryis normal caliber. Marked arterial calcifications. PLEURA: There is no pleural fluid or pneumothorax AXILLA/CHEST WALL: There are no enlarged axillary lymph nodes. No chestwall mass demonstrated VISUALIZED UPPER ABDOMEN: No suspicious abnormality on limited assessmentof the visualized upper abdomen MUSCULOSKELETAL: No suspicious focal bony lesion. IMPRESSION: Prior right lower lobectomy. No new suspicious mass or nodule. No suspicious interval change -------- FINAL REPORT -------- Dictated By: Demarcus Jorgensen Dictated Date: 10/18/2024 08:33 ET Assigned Physician: Demarcus Jorgensen Reviewed and Electronically Signed By: Demarcus Jorgensen Signed Date: 10/18/2024 08:44 ET Workstation ID: [id number] Transcribed By: Self Edit Transcribed Date: 10/18/2024 08:33 ET Irving SORENSEN IMG CT PROCEDURES Final Result * MR Cervical Spine wo Contrast (09/02/2024 7:33 PM EDT) Anatomical Region Laterality Modality C-spine, Spine Magnetic Resonan ce 09/05/2024 10:5 3 AM EDT Impressions 09/05/2024 11:27 AM EDT Multilevel degenerative changes most pronounced at C5-6 and C6-7 where there is moderate spinal canal stenosis and severe foraminal stenosis bilaterally. No cord signal abnormality. -------- FINAL REPORT -------- Dictated By: SATISH PHILLIPS Dictated Date: 09/05/2024 10:53 ET Assigned Physician: SATISH PHILLIPS Reviewed and Electronically Signed By: SATISH PHILLIPS Signed Date: 09/05/2024 11:27 ET Workstation ID: [id number] Transcribed By: Self Edit Transcribed Date: 09/05/2024 11:04 ET Narrative 09/05/2024 11:27 AM EDT PROCEDURE: Cervical spine MRI INDICATION: Pain TECHNIQUE: Multiplanar, multisequence MRI of the Cervical spine Without contrast. COMPARISON: Radiographs 08/26/2024. FINDINGS: Mild anterolisthesis at [...] normal in signal and morphology. No epidural collection or mass is seen within the spinal canal. Paraspinal muscles are within normal limits. Findings by level: C2-C3: Right greater than left facet arthropathy and uncovertebral spurring resulting in mild left and moderate right foraminal stenosis. No spinal canal stenosis. C3-C4: Left greater than right facet arthropathy and uncovertebral spurring resulting in severe left and moderate right frontal stenosis. No spinal canal stenosis. C4-C5: Bilateral facet arthropathy and uncovertebral spurring resulting in severe foraminal stenosis bilaterally. No spinal canal stenosis. C5-C6: Posterior disc osteophyte complex with thickening of the posterior ligamentous structures resulting in moderate spinal canal stenosis. Left greater than right facet arthropathy and uncovertebral spurring resulting in severe foraminal stenosis bilaterally, more pronounced on the left. C6-C7: Posterior disc osteophyte complex and thickening of the posterior ligamentous structures results in moderate spinal canal stenosis. Bilateral uncovertebral spurring with severe foraminal stenosis bilaterally. C7-T1: Posterior disc osteophyte complex with no spinal canal stenosis. Bilateral uncovertebral spurring and facet arthropathy resulting in moderate foraminal stenosis bilaterally. Procedure Note Satish Phillips MD - 09/05/2024 PROCEDURE: Cervical spine MRI [...] -------- FINAL REPORT -------- Dictated By: SATISH PHILLIPS Dictated Date: 09/05/2024 10:53 ET Assigned Physician: SATISH PHILLIPS Reviewed and Electronically Signed By: SATISH PHILLIPS Signed Date: 09/05/2024 11:27 ET Workstation ID: [id number] Transcribed By: Self Edit Transcribed Date: 09/05/2024 [...] Signed Date: 08/26/2024 12:17 ET Workstation ID: [id number] Transcribed By: Self Edit Transcribed Date: 08/26/2024 [...] narrowing on the left at C6/C7 and C5/[id number] the foramina are not optimally evaluated. No [...] Signed Date: 08/26/2024 12:17 ET Workstation ID: [id number] Transcribed By: Self Edit Transcribed Date: 08/26/2024 12:[address] [facility] XR PROCEDURES Final Resul t * XR Shoulder 2+ Views Right (08/23/2024 7:13 AM EDT) Anatomical Region Laterality Modality Upper Extremities, Shoulder Right Radi ographic Imaging 08/23/2024 8:21 AM EDT Impressions 08/23/2024 8:23 AM EDT Impression: No significant abnormality of the right scapula identified. Telerad PA ([id number]) -------- FINAL REPORT -------- Dictated By: Shu Guardado Dictated Date: 08/23/2024 08:21 ET Assigned Physician: Shu Guardado Reviewed and Electronically Signed By: Shu Guardado Signed Date: 08/23/2024 08:23 ET Workstation ID: [id number] Transcribed By: Self Edit Transcribed Date: 08/23/2024 [...] of the right scapula identified. Telerad EDU ([id number]) -------- FINAL REPORT -------- Dictated By: Shu Guardado Dictated Date: 08/23/2024 08:21 ET Assigned Physician: Shu Guardado Reviewed and Electronically Signed By: Shu Guardado Signed Date: 08/23/2024 08:23 ET Workstation ID: [id number] Transcribed By: Self Edit Transcribed Date: 08/23/2024 08:21 ET us Scot A Suleiman VIVEROS IMG XR PROCEDURES Final Result * (ABNORMAL) Lipid panel with reflex to direct LDL (08/02/2024 10:05 AM EDT) Cholesterol 316(H) 0 - 200 mg/dL LAB [facility] Triglycerides 918(H) 0 - 150 mg/dL LAB CHEMISTRY METHOD 08/02/2024 12:07 PM [facility] HDL 47 >=40 mg/dL LAB CHEMISTRY METHOD 08/02/2024 12:07 PM [facility] LDL Calculated LAB CHEMISTRY METHOD 08/02/2024 12:07 PM [facility] Comment: Unable to calculate when triglycerides >400 mg/dL. Triglyceride value is >= 500. Calculated LDL is not meaningful. Direct LDL has been added. VLDL Cholesterol Hussein LAB CHEMISTRY METHOD 08/02/2024 12:07 PM [facility] Comment:Unable to calculate when triglycerides >400 mg/dL. Non HDL Chol. (LDL+VLDL) LAB CHEMISTRY METHOD 08/02/2024 12:07 PM [facility] Comment:Unable to calculate when triglycerides >400 mg/dL. Chol/HDL Ratio 6.7(H) 0.0 - 4.4 LAB CHEMISTRY METHOD 08/02/2024 12:07 PM [facility] Blood Venous blood specimen / Unknown Venipuncture / Unknown 08/02/2024 10:05 AM EDT 08/02/2024 10:05 AM EDT Randy Dong LAB BLOOD ORDERABLES Final Resul t Performing Organization Address [facility] Co de Phone Number [facility] [address] [place] [address], [place] [phone] * (ABNORMAL) LDL cholesterol, direct (08/02/2024 10:05 AM EDT) LDL Direct 159(H) <=100 mg/dL LAB CHEMISTRY METHOD 08/02/2024 12:37 PM EDT [facility] Comment:Results verified by repeat testing Blood Venous blood specimen / Unknown Venipuncture / Unknown 08/02/2024 10:05 AM EDT 08/02/2024 10:05 AM EDT Randy Band [employer] LAB BLOOD ORDERABLES Final Resul t Performing Organization Address [facility]/ZIP Co de Phone Number [facility] [address] [place] [address], [place] [phone] * Iron (08/02/2024 10:05 AM EDT) Iron 68 50 - 160 mcg/dL LAB CHEMISTRY METHOD 08/02/2024 12:07 PM EDT [facility] Blood Venous blood specimen / Unknown Venipuncture / Unknown 08/02/2024 10:05 AM EDT 08/02/2024 10:05 AM EDT Randy Dong LAB BLOOD ORDERABLES Final Resul t Performing Organization Address City/[facility]/ZIP Co de Phone Number [facility] [address] [place] [address], [place] [phone] * (ABNORMAL) Hemoglobin A1c (08/02/2024 10:05 AM EDT) Pathologist [facility] Hemoglobin A1C 9.3(H) <6.5 % LAB CHEMISTRY METHOD 08/02/2024 2:16 PM EDT [facility] Mean Bld Glu Estim. 220 mg/dL LAB CHEMISTRY METHOD 08/02/2024 2:16 PM EDT [facility] Blood Venous blood specimen / Unknown Venipuncture / Unknown 08/02/2024 10:05 AM EDT 08/02/2024 10:05 AM EDT Randy Titus LAB BLOOD ORDERABLES Final Resul t Performing Organization Address City/[facility]/ZIP Co de Phone Number [facility] [address] [place] [address], [place] [phone] * Ferritin (08/02/2024 10:05 AM EDT) Pathologist [facility] Ferritin 262 26 - 388 ng/mL LAB CHEMISTRY METHOD 08/02/2024 12:07 PM EDT [facility] Blood Venous blood specimen / Unknown Venipuncture / Unknown 08/02/2024 10:05 AM EDT 08/02/2024 10:05 AM EDT Randy Mat LAB BLOOD ORDERABLES Final Resul t [facility] [address] [place] [address], [place] [phone] * Creatine kinase (08/02/2024 10:05 AM EDT) [facility] Total CK 78 22 - 269 unit/L LAB CHEMISTRY METHOD 08/02/2024 11:56 AM EDT [facility] Blood Venous blood specimen / Unknown Venipuncture / Unknown 08/02/2024 10:05 AM EDT 08/02/2024 10:05 AM EDT us Randy Rivero LAB BLOOD ORDERABLES Final Resul t [facility] [address] [place] [address], * (ABNORMAL) Comprehensive metabolic panel (06/10/2024 12:55 PM EST) Sodium 129(L) 133 - 145 mmol/L LAB CHEMISTRY METHOD 06/10/2024 2:27 PM EST [facility] Potassium 4.8 3.5 - 5.5 mmol/L LAB CHEMISTRY METHOD 06/10/2024 2:27 PM [facility] Chloride 93(L) 96 - 110 mmol/L LAB CHEMISTRY METHOD 06/10/2024 2:27 PM [facility] CO2 22 21 - 32 mmol/L LAB CHEMISTRY METHOD 06/10/2024 2:27 PM [facility] Anion Gap 14(H) 3 - 11 LAB CHEMISTRY METHOD 06/10/2024 2:27 PM [facility] Glucose 432(HH) 70 - 100 mg/dL LAB CHEMISTRY METHOD 06/10/2024 2:27 PM [facility] BUN 30(H) 5 - 25 mg/dL LAB CHEMISTRY METHOD 06/10/2024 2:27 PM [facility] Creatinine 1.40(H) 0.70 - 1.30 mg/dL LAB CHEMISTRY METHOD 06/10/2024 2:27 PM [facility] eGFR 56(L) >=60 mL/min/1. 73m2 LAB CHEMISTRY METHOD 06/10/2024 2:27 PM [facility] Comment:Calculation based on the Chronic Kidney Disease Epidemiology Collaboration (CKD-EPI) equation refit without adjustment for race. BUN/Creatinine Ratio 21.4 LAB CHEMISTRY METHOD 06/10/2024 2:27 PM [facility] Calcium 9.8 8.5 - 10.5 mg/dL LAB CHEMISTRY METHOD 06/10/2024 2:27 PM [facility] AST (SGOT) 34 10 - 42 unit/L LAB CHEMISTRY METHOD 06/10/2024 2:27 PM [facility] ALT (SGPT) 48 10 - 60 unit/L LAB CHEMISTRY METHOD 06/10/2024 2:27 PM [facility] Alkaline Phosphatase 154(H) 42 - 121 unit/L LAB CHEMISTRY METHOD 06/10/2024 2:27 PM [facility] Total Protein 7.7 6.0 - 8.0 g/dL LAB CHEMISTRY METHOD 06/10/2024 2:27 PM [facility] Albumin 4.0 3.2 - 5.0 g/dL LAB CHEMISTRY METHOD 06/10/2024 2:27 PM [facility] Total Bilirubin 0.5 0.0 - 1.4 mg/dL LAB CHEMISTRY METHOD 06/10/2024 2:27 PM [facility] Blood Venous blood specimen / Unknown Venipuncture / Unknown 06/10/2024 12:55 PM EST 06/10/2024 1:30 PM EST Denilson Leon MD LAB BLOOD ORDERABLES Alice l Result [facility] [address] [place] [address], from Last 3 Months or Most Recently Relevant to Health Maintenance Insurance [employer] MEDICARE Care Teams Aadc Plans Staff Officer Relationship Specialty Start Date End Date Cris Turner MD [address] [place] [address] PCP - General Internal Medicine 10/27/24
--- OUTSIDE RECORDS SUMMARY | 2024-10-31 12:45 | XMS_ITS | Clinical Summary ---
Author Organization [facility] Address [address] [place] [address] Care Team Providers Care Language Therapist Name Role Phone Cash Walters DO Primary Care Provider [phone] Medications No known medications Active Problems No known active problems Social History Tobacco Use Types Packs/Day Years Used Date Smoking Tobacco: Former Cigarettes Smokeless Tobacco: Never Tobacco Cessation:Counseling Given: Not Answered Alcohol Use Standard Drinks/Week Comments Yes 7 (1 standard drink = 0.6 oz pur e alcohol) Sex and Gender Information Value Date Recorded Sex Assigned at Not on file Gender Identity Not on file Sexual Orientation Not on file Job Start Date Occupation Industry Not on file Not on file Not on file Last Filed Vital Signs Vital Sign Reading Time Taken Comments Blood Pressure 138/68 09/09/2022 3:38 PM EDT Pulse 92 09/09/2022 3:38 PM EDT Temperature 36.3 C (97.4 F) 09/09/2022 3:38 PM EDT Respiratory Rate - - Oxygen Saturation 100% 09/09/2022 3:38 PM EDT Inhaled Oxygen Concentration - - Weight 83 kg (183 lb) 09/09/2022 3:38 PM EDT Height 172.7 cm (5' 8 ) 09/09/2022 3:38 PM EDT Body Mass Index 27.83 09/09/2022 3:38 PM EDT Plan of Treatment Health Maintenance Due Date Last Done Comments Hepatitis C Screening 1960 COVID-19 Vaccine (#1) 1959 Depression Screening 1971 BMI Counseling 1977 Preventative Health Evaluation 1977 DTap / Tdap / Td (1 - Tdap) 1978 Colon Cancer Screening (Colonoscopy) 01/04/2004 Shingrix-Zoster Vaccine (1 of 2) 2009 Fall Risk Assessment 01/04/2024 Pneumococcal Vaccine (1 of 1 - PCV) 01/04/2024 Influenza Vaccine (#1) 2024 RSV Adult > 60+ Yrs or Pregn ant (1 - 1-dose 75+ series) 2034 Hepatitis B Vaccines Aged Out No long er eligible based on patient's age to complete this topic Pneumococcal Vaccine Aged Out No long er eligible based on patient's age to complete this topic RSV Ped < 20 months Aged Out No longe r eligible based on patient's age to complete this topic Care Teams Language Therapist Relationship Specialty Start Date End Date Cash aWlters DO [address] [place] [address] [address] [place] [address] PCP - General Internal Medicine 07/18/22
== END 2024-10-31 12:14 | disposition home or self-care (01) ==
LOC: HO.HNS 11:36
PROVIDERS: PCP Internal Medicine; Visit Provider Physician Assistant
DX: M54.12 Radiculopathy, cervical region (principal); M72.0 Palmar fascial fibromatosis [Dupuytren]
CPT/HCPCS: 99213

== ENCOUNTER → 2024-10-31 11:36 | Outpatient (BNVA) | payer MEDICARE, SELFPAY | PROVIDERS: PCP Internal Medicine; Visit Provider Physician Assistant | DX: M54.12 Radiculopathy, cervical region (principal); M72.0 Palmar fascial fibromatosis [Dupuytren] | CPT/HCPCS: 99212 ==